=== PATIENT | female | born 1930 | race Caucasian/White ===

== ENCOUNTER 2016-11-02 12:54 | Emergency (ER) | payer MEDICARE, OTHER ==
[~2016-11-02] VITALS: Ht 162.6 cm; Wt 103.0 kg
[~2016-11-02 12:54] MED LIST: CLOT45CR43 VAG; DOCU-159 PO; LACT1CAP57 PO; LOSA25TA2 PO; MEMA10TA20 PO; OXYB10TA6 PO; RIVA1PAT TD; RIVA1PAT TRANSDERM; SUCR1TAB56 PO; TRAM50TA2 PO; ZOLP5TAB PO
[2016-11-02 13:02] VITALS: Ht 162.6 cm; Wt 103.0 kg
[2016-11-02] MEDS ORDERED: ACET500C5 PO (15:32)
--- NOTE | 2016-11-02 15:40 | ERD ---
ER Documentation Chief Complaint Date/Time DATE: 11/02/16 TIME: 15:38 Chief Complaint LT HAND PAIN S/P FALL LAST NIGHT , DENIES DIZZINESS HPI This 86-year-old female presents with left hand pain after falling last night. She tripped. She denies any head injury, neck pain, weakness, additional complaints. ROS All systems reviewed and are negative except as per history of present illness. Medications Home Meds Active Scripts Acetaminophen* (Tylophen*) 500 Mg Capsule, 1 CAP PO Q6H Y for PAIN AND OR ELEVATED TEMP, #20 CAP Prov:HUNTER DUNN MD 11/02/16 Zolpidem Tartrate (Ambien Landon) 5 Mg Tablet, 5 MG PO QHS Y for SLEEP for 30 Days , TAB Prov:DHRUV SALMERON 10/28/15 Lactobacillus Rhamnosus* (Culturelle*) 1 Each Cap.sprink, 1 CAP PO BID for 30 Days, CAP Prov:DHRUV SALMERON 10/28/15 Clotrimazole (Clotrim) 45 Gm Cr, 1 APPLIC VAG HS for 7 Days Prov:DHRUV SALMERON 10/28/15 Memantine HCl (Memantine HCl) 10 Mg Tablet, 10 MG PO BID for 30 Days, TAB Prov:DHRUV SALMERON 10/08/15 Rivastigmine* Patch (Exelon* Patch) 13.3 Mg/24 Hr Patch.td24, 1 PATCH TRANSDERM DAILY@20 for 30 Days Prov:DHRUV SALMERON 10/08/15 Oxybutynin Chloride* (Ditropan* XL) 10 Mg Tab.er.24, 10 MG PO DAILY for 30 Days , TAB.SA Prov:DHRUV SALMERON 10/08/15 Reported Medications Docusate Sodium* (Docusate Sodium*) 100 Mg Capsule, 100 MG PO BID, CAP 08/23/14 Rivastigmine* Patch (Exelon* Patch) 13.3 Mg/24 Hr Patch.td24, 1 PATCH TD DAILY, PATCH 08/23/14 Sucralfate* (Carafate*) 1 Gm Tab, 1 GM PO TID AC MEALS, TAB 08/23/14 Tramadol HCl (Tramadol HCl) 50 Mg Tab, 50-100 MG PO TID Y for PAIN, TAB 08/23/14 Losartan Potassium* (Cozaar*) 25 Mg Tablet, 25 MG PO BID 02/08/12 Allergies Allergies: Coded Allergies: No Known Allergy (Unverified , 10/17/15) PMhx/Soc History of Surgery: Yes (BILAT TKR, BACK SX, GALLBLADDER REMOVAL) Anesthesia Reaction: No Hx Neurological Disorder: No Hx Respiratory Disorders: No Hx Cardiac Disorders: No Hx Psychiatric Problems: No Hx Miscellaneous Medical Probl: Yes (obesity) Hx Alcohol Use: No Hx Substance Use: No Hx Tobacco Use: No Smoking Status: Never smoker Physical Exam Vitals Vital Signs Date Time Temp Pulse Resp B/P Pulse Ox O2 Delivery O2 Flow Rate FiO2 11/02/16 13:02 98.2 81 18 135/66 98 Physical Exam Const: []Alert, not ill-appearing. Head: Atraumatic Eyes: Normal Conjunctiva ENT: Normal External Ears, Nose and Mouth. Neck: Full range of motion..~ No meningismus. Resp: Clear to auscultation bilaterally Cardio: Regular rate and rhythm, no murmurs Abd: Soft, non tender, non distended. Normal bowel sounds Skin: No petechiae or rashes Back: No midline or flank tenderness Ext: No cyanosis, or edemaAlert, [id number]. There is some tenderness and bruising over the left second metacarpal phalangeal area. There is no erythema, bleeding, restricted range of motion weakness. Cap refill is less than seconds. Neur: Awake and alert Psych: Normal Mood and Affect Departure Diagnosis: Primary Impression: Hand fracture, left Encounter type: initial encounter Fracture type: closed Qualified Code: S62.92XA - Closed fracture of left hand, initial encounter Condition: Stable Additional Instructions: X-ray left hand 3V interpreted by me: Scaphoid: [Normal] Bones: [There is a minimally displaced fracture of the distal left second metacarpal shaft Joints: [No dislocation] Foreign body: [None]. Impression-minimally displaced left distal second metacarpal shaft fracture Patient was placed in a left hand splint and was neurovascular intact after splint Patient presents with a closed left metacarpal first shaft fracture. There is no evidence of ischemia, bacterial infection, deficits. She will discharged home in a splint with primary care and orthopedic follow-up. She should return sooner for redness, fevers, new symptoms. HUNTER DUNN MD Nov 02, 2016 15:40
--- NOTE | 2016-11-02 16:19 | RADRPT ---
PROCEDURE: Left hand series CLINICAL INDICATION: Pain status post trauma TECHNIQUE: AP oblique and lateral view COMPARISON: None available FINDINGS: Soft tissue swelling is noted along the dorsal surface of the second metacarpal. An acute, closed, o blique fracture of the distal portion of the second metacarpal is noted. No radiodense foreign ishmael s are present. No evidence for definite intra-articular extension or dislocation is noted . Mild joint space narrowing is noted of the trapezium and first metacarpal joint as well as the left second through fifth distal interphalangeal joints. IMPRESSION: 1. Acute, closed, oblique fracture of the left distal second metacarpal without definite evidence f or intra-articular extension and no dislocation. 2. Soft tissue swelling along the dorsum of the left second metacarpal. 3. Mild osteopenia and joint space narrowing is noted. RPTAT: HDC .Emerita Desir MD, Date Time Electronically viewed and signed by .Emerita Desir MD, MD on 11/02/2016 16:18 .C/
== END 2016-11-02 16:40 | disposition home or self-care (01) ==
LOC: FTE 12:54
DX: S62.301A Unspecified fracture of second metacarpal bone, left hand, initial encounter for closed fracture (principal); E66.9 Obesity, unspecified; W01.0XXA Fall on same level from slipping, tripping and stumbling without subsequent striking against object, initial encounter; Y92.9 Unspecified place or not applicable; Z68.39 Body mass index [BMI] 39.0-39.9, adult

== ENCOUNTER 2017-01-04 22:08 | Inpatient (IN) | payer MEDICARE, OTHER ==
[~2017-01-04] VITALS: Ht 167.6 cm; Wt 102.6 kg
[~2017-01-04 22:08] MED LIST changes: +ACET500C5 PO
--- NOTE | 2017-01-05 00:52 | RADRPT ---
PROCEDURE: Portable chest x-ray. CLINICAL INDICATION: Chest pain. TECHNIQUE: Portable AP view of the chest. COMPARISON: 10/27/2015. FINDINGS: No pulmonary edema or conolidation is identified. The cardiac silhouette is magnified. There are ao rtic calcifications. No pleural effusion is seen. There is no pneumothorax. IMPRESSION: 1. No evidence of acute cardiopulmonary disease. 2. Aortic atherosclerosis. RPTAT: HTAR .Damien Gracia MD, MD Date Time Electronically viewed and signed by .Damien Gracia MD, on 01/05/2017 00:52 .R/
--- NOTE | 2017-01-05 01:00 | ERD ---
ER Documentation Chief Complaint Chief Complaint pressure like chest pain since 1 hourago, dizziness HPI 86-year-old female here for pressure-like chest pain since 1 hour ago. Chest pain is sharp, substernal with no exacerbating relieving factors. Patient also felt dizzy and almost like she was in the past L. No palpitations. No other current issues ROS All systems reviewed and are negative except as per history of present illness. Medications Home Meds Active Scripts Acetaminophen* (Tylophen*) 500 Mg Capsule, 1 CAP PO Q6H Y for PAIN AND OR ELEVATED TEMP, #20 CAP Prov:HUNTER DUNN MD 11/02/16 Zolpidem Tartrate (Ambien Landon) 5 Mg Tablet, 5 MG PO QHS Y for SLEEP for 30 Days , TAB Prov:DHRUV SALMERON 10/28/15 Lactobacillus Rhamnosus* (Culturelle*) 1 Each Cap.sprink, 1 CAP PO BID for 30 Days, CAP Prov:DHRUV SALMERON 10/28/15 Clotrimazole (Clotrim) 45 Gm Cr, 1 APPLIC VAG HS for 7 Days Prov:DHRUV SALMERON 10/28/15 Memantine HCl (Memantine HCl) 10 Mg Tablet, 10 MG PO BID for 30 Days, TAB Prov:DHRUV SALMERON 10/08/15 Rivastigmine* Patch (Exelon* Patch) 13.3 Mg/24 Hr Patch.td24, 1 PATCH TRANSDERM DAILY@20 for 30 Days Prov:DHRUV SALMERON 10/08/15 Oxybutynin Chloride* (Ditropan* XL) 10 Mg Tab.er.24, 10 MG PO DAILY for 30 Days , TAB.SA Prov:DHRUV SALMERON 10/08/15 Reported Medications Docusate Sodium* (Docusate Sodium*) 100 Mg Capsule, 100 MG PO BID, CAP 08/23/14 Rivastigmine* Patch (Exelon* Patch) 13.3 Mg/24 Hr Patch.td24, 1 PATCH TD DAILY, PATCH 08/23/14 Sucralfate* (Carafate*) 1 Gm Tab, 1 GM PO TID AC MEALS, TAB 08/23/14 Tramadol HCl (Tramadol HCl) 50 Mg Tab, 50-100 MG PO TID Y for PAIN, TAB 08/23/14 Losartan Potassium* (Cozaar*) 25 Mg Tablet, 25 MG PO BID 02/08/12 Allergies Allergies: Coded Allergies: No Known Allergy (Unverified , 10/17/15) PMhx/Soc History of Surgery: Yes (BILAT TKR, BACK SX, GALLBLADDER REMOVAL) Anesthesia Reaction: No Hx Neurological Disorder: No Hx Respiratory Disorders: No Hx Cardiac Disorders: No Hx Psychiatric Problems: No Hx Miscellaneous Medical Probl: Yes (obesity) Hx Alcohol Use: No Hx Substance Use: No Hx Tobacco Use: No Smoking Status: Never smoker Physical Exam Vitals Vital Signs Date Time Temp Pulse Resp B/P Pulse Ox O2 Delivery O2 Flow Rate FiO2 01/04/17 22:11 97.8 76 20 136/82 98 Physical Exam Const: [] Head: Atraumatic Eyes: Normal Conjunctiva ENT: Normal External Ears, Nose and Mouth. Neck: Full range of motion..~ No meningismus. Resp: Clear to auscultation bilaterally Cardio: Regular rate and rhythm, no murmurs Abd: Soft, non tender, non distended. Normal bowel sounds Skin: No petechiae or rashes Back: No midline or flank tenderness Ext: No cyanosis, or edema Neur: Awake and alert Psych: Normal Mood and Affect Result Diagram: 01/04/17231601/04/172316 Results 24 hrs Laboratory Tests Test 01/04/17 23:17 White Blood Count 9.810^3/ul Red Blood Count 4.7610^6/ul Hemoglobin 14.5g/dl Hematocrit 43.3% Mean Corpuscular Volume 91.0fl Mean Corpuscular Hemoglobin 30.5pg Mean Corpuscular Hemoglobin Concent 33.5g/dl Red Cell Distribution Width 13.3% Platelet Count 99018^3/UL Mean Platelet Volume 10.1fl Neutrophils % 73.7% Lymphocytes % 19.2% Monocytes % 6.3% Eosinophils % 0.3% Basophils % 0.2% Nucleated Red Blood Cells % 0.0/100WBC Neutrophils # 7.210^3/ul Lymphocytes # 1.910^3/ul Monocytes # 0.610^3/ul Eosinophils # 0.010^3/ul Basophils # 0.010^3/ul Nucleated Red Blood Cells # 0.010^3/ul Sodium Level 141mmol/L Potassium Level 4.4mmol/L Chloride Level 104mmol/L Carbon Dioxide Level 27mmol/L Anion Gap 14 Blood Urea Nitrogen 21mg/dl Creatinine 1.35mg/dl Glucose Level 146mg/dl Calcium Level 10.2mg/dl Total Bilirubin 0.3mg/dl Direct Bilirubin 0.00mg/dl Indirect Bilirubin 0.3mg/dl Aspartate Amino Transf (AST/SGOT) 27IU/L Alanine Aminotransferase (ALT/SGPT) 29IU/L Alkaline Phosphatase 92IU/L Troponin I < 0.012ng/ml B-Type Natriuretic Peptide 184PG/ML Total Protein 8.3g/dl Albumin 4.2g/dl Globulin 4.10g/dl Albumin/Globulin Ratio 1.02 Procedures/MDM EKG: Rate/Rhythm: [Normal Sinus Rhythm] QRS, ST, T-waves: [No changes consistent w/ acute ischemia] Impression: [No evidence of ischemia or arrhythmia] Chest X-ray 1V Interpreted by me: Soft Tissue: No acute abnormalities Bones: No acute abnormalities Mediastinum/Cardiac Silhouette/Lungs: [No acute abnormalities] Patient's symptoms are concerning for cardiac cause will require inpatient workup and continuous monitoring. Further w/u for ischemia, arrhythmia, PE or dissection will be deferred to the inpatient team. Accepting Care Team: Current data and ongoing care discussed. Time: 1 AM Primary Provider: Dr. Lee Consulting: [[employer]] Outstanding Data: none Departure Diagnosis: Primary Impression: Chest pain Chest pain type: unspecified Qualified Code: R07.9 - Chest pain, unspecified type Condition: Serious EMMANUELNATALIE WallSanjeev Jan 05, 2017 01:00
[2017-01-05] MEDS ORDERED: SOLI10TA5 PO (02:19)
[2017-01-05] MEDS ORDERED: ALPR0.5T6 PO (02:19)
[2017-01-05] MEDS ORDERED: DEXL60CA2 PO (02:19)
[2017-01-05] MEDS ORDERED: FAMOTIDINE 20 MG TAB PO SCH (03:45)
[2017-01-05] MEDS ORDERED: ACETAMINOPHEN 325 MG TAB PO PRN (04:00)
[2017-01-05] MEDS ORDERED: NACL 0.9% 3 ML SYG IV SCH (04:00)
[2017-01-05] MEDS ORDERED: NITROGLYCERIN (SL) 0.4 MG TAB SL PRN (04:00)
[2017-01-05] MEDS ORDERED: ONDANSETRON 4 MG INJ IV PRN (04:00)
[2017-01-05 06:00] VITALS: TEMP 98.8
--- NOTE | 2017-01-05 06:31 | HP ---
Date/Time of Note Date/Time of Note DATE: 01/05/17 TIME: 06:13 Assessment/Plan VTE Prophylaxis VTE Prophylaxis Intervention: SCD's Lines/Catheters IV [facility] Saline Lock Assessment/Plan Chief Complaint/Hosp Course This is a 86-year-old female being admitted to the telemetry floor for: #1 chest pain: Rule out ACS versus musculoskeletal etiology: trend troponins 3 4 set negative. Will check a 2D echocardiogram in the a.m. Patient does have palpable chest pain of the right chest which could be secondary to cost chondritis. Nonetheless we will rule out cardiac causes. Consult cardiology if indicated #2 acute kidney injury: Likely acute in nature as her previous kidney function one year ago appears in normal values. Likely prerenal. Will encourage p.o. intake will monitor kidney function. #3 Dementia: continue home meds #4 hypertension: We will resume patient on medication #5 history of lumbar surgery: Continue patient home pain meds #6 Overactive bladder: Continue home Vesicare, Ditropan #7 anxiety: Continue patient's Ativan #8 acid reflux: Continue Carafate, PPI #8 DVT GI prophylaxis: SCDs, PPI Further treatment strategy will be implemented as per the clinical course Problems: HPI/ROS Admit Date/Time Admit Date/Time Hx of Present Illness Chief complaint: Chest pain This is a 86-year-old female here for pressure-like chest pain since 1 hour ago. She states that she was shopping with her son she started experiencing chest pressure and diaphoresis and she felt dizzy. Patient reports the pain is on the right and right side of her chest. Patient also felt dizzy. No palpitations. Denies any lower extremity edema. allergies: NKDA Medications: See ERIC ROS Const: As per HPI Eyes : No pain discharge or redness or change in visual acuity ENT: No pain, sore throat, congestion, congestion, dysphagia or discharge Respiratory: No shortness of breath, cough, sputum, wheezing, or pleuritic pain Cardiovascular: As per HPI GI : no change in appetite, abdominal pain, nausea, vomiting, diarrhea, constipation, or change in the color his stool Genitourinary: No dysuria, hematuria, flank pain , discharge or CVA tenderness Musculoskeletal: No joint pain, back pain, neck pain, restricted range of motion in neck or joints Skin: No rash, bruising or hives Neuro: No headache, dizziness, syncope, seizure, focal weakness Endocrine: No polyuria, polydipsia, temperature intolerance Psych: No hallucination, depression, anxiety or suicidal ideation PMH/Family/Social Past Medical History History of lumbar injury status post surgery, acid reflux, anxiety, hypertension , mild dementia Past Surgical History Lumbar surgery, bilateral knee replacement Family History Significant Family History: no pertinent family hx Social History Alcohol Use: none Smoking Status: Never smoker Drug Use: none Exam/Review of Systems Vital Signs Vitals Vital Signs Date Time Temp Pulse Resp B/P Pulse Ox O2 Delivery O2 Flow Rate FiO2 01/05/17 06:00 98.8 62 115/82 100 2.0 01/05/17 02:21 18 Nasal Cannula Exam Exam General: Patient is an obese female lying in bed in no acute distress HEENT: Atraumatic, normocephalic. The pupils are equal, round and reactive. Extraocular motor are intact Neck: Supple with full range of motion. No rigidity or meningismus Chest: Tender to palpation over the right chest Lungs: Clear to auscultation bilaterally no crackles rales or wheezing Heart: Normal S1-S2, Regular rhythm and rate. No overt murmurs appreciated Abdomen: Soft , nontender, nondistended , bowel sounds are present. No guarding no rebound tenderness , No masses or organomegaly. No costovertebral temporal angle mass Extremities: Normal to inspection, no edema no cyanosis Neurologic: Normal mental status, speech normal, cranial nerves II through XII are intact, motor and sensory are intact, no focal weakness Additional Comments EKG: Rate/Rhythm: [Normal Sinus Rhythm] QRS, ST, T-waves: [No changes consistent w/ acute ischemia] Impression: [No evidence of ischemia or arrhythmia] As per ED physician documentation PROCEDURE: Portable chest x-ray. CLINICAL INDICATION: Chest pain. TECHNIQUE: Portable AP view of the chest. COMPARISON: 10/27/2015. FINDINGS: No pulmonary edema or conolidation is identified. The cardiac silhouette is magnified. There are aortic calcifications. No pleural effusion is seen. There is no pneumothorax. IMPRESSION: 1. No evidence of acute cardiopulmonary disease. 2. Aortic atherosclerosis. RPTAT: HTAR .Damien Gracia MD, Date Time Electronically viewed and signed by .Damien Gracia MD, on 01/05/2017 00:52 .R/ CC: NATALIE BENITEZ Labs Result Diagram: 01/05/17 0530 01/04/17 3097 Medications Medications Current Medications Ondansetron HCl (Zofran Inj) 4 mg Q6H PRN IV NAUSEA AND/OR VOMITING; Start 01/05/17 at 04:00 Nitroglycerin (Nitroglycerin (Sl Tab) 0.4 Mg) 1 tab Q5M PRN SL CHEST PAIN; Start 01/05/17 at 04:00 Acetaminophen (Tylenol Tab) 650 mg Q6H PRN PO PAIN LEVEL 1-3 OR FEVER; Start 01/05/17 at 04:00 Famotidine (Pepcid) 20 mg DAILY PO Last administered on 01/05/17t 04:21; Admin Dose 20 MG; Start 01/05/17 at 03:45 JENNIFER BENOIT Jan 05, 2017 06:24
[2017-01-05 08:40] VITALS: BP 138/68; PULSE 60; RESP 21
[2017-01-05] MEDS ORDERED: SUCRALFATE 1 GM TAB PO SCH (09:00)
[2017-01-05] MEDS ORDERED: SOLIFENACIN 5 MG TAB PO SCH (09:00)
[2017-01-05] MEDS ORDERED: LOSARTAN 25 MG TAB PO SCH (09:00)
[2017-01-05] MEDS ORDERED: RIVASTIGMINE 13.3MG/24HR PATCH TD SCH (09:00)
[2017-01-05] MEDS ORDERED: OXYBUTYNIN (XL) 5 MG TAB PO SCH (09:00)
[2017-01-05] MEDS ORDERED: ALPRAZOLAM 0.25 MG TAB PO SCH (09:00)
[2017-01-05 09:34] VITALS: PULSE 66
[2017-01-05 10:45] VITALS: Ht 167.6 cm; Wt 102.6 kg
[2017-01-05 12:17] VITALS: PULSE 75
[2017-01-05] MEDS ORDERED: SULF1TAB31 PO (15:11)
--- NOTE | 2017-01-05 15:12 | PDOCDIS ---
Discharge Instructions DIAGNOSIS Discharge Diagnosis Syncope CONDITION Patient Condition: Fair HOME CARE INSTRUCTIONS: Diet Instructions: Regular FOLLOW UP/APPOINTMENTS Follow-up Plan Talk to your doctor about yoru medical concerns and whether it is ok to stop some of your medications Return to the hosptial if you have any concerning symptoms MATT RIVREA MD Jan 05, 2017 15:12
--- NOTE | 2017-01-05 15:12 | PDOCDIS ---
Discharge Instructions DIAGNOSIS Discharge Diagnosis Syncope CONDITION Patient Condition: Fair HOME CARE INSTRUCTIONS: Diet Instructions: Regular FOLLOW UP/APPOINTMENTS Follow-up Plan Talk to your doctor about yoru medical concerns and whether it is ok to stop some of your medications Return to the hosptial if you have any concerning symptoms MATT RIVERA MD Jan 05, 2017 15:12
--- NOTE | 2017-01-05 15:13 | DS ---
Date/Time of Note Date/Time of Note DATE: 01/05/17 TIME: 15:12 Discharge Summary Admission/Discharge Info Admit Date/Time Jan 05, 2017 at 00:40 Discharge Date/Time Discharge Diagnosis Syncope Patient Condition: Good Hx of Present Illness Chief complaint: Chest pain This is a 86-year-old female here for pressure-like chest pain since 1 hour ago. She states that she was shopping with her son she started experiencing chest pressure and diaphoresis and she felt dizzy. Patient reports the pain is on the right and right side of her chest. Patient also felt dizzy. No palpitations. Denies any lower extremity edema. allergies: NKDA Medications: See MAY Hospital Course This is a 86-year-old female being admitted to the telemetry floor for: #1 chest pain: Rule out ACS versus musculoskeletal etiology: trend troponins 3 4 set negative. Will check a 2D echocardiogram in the a.m. Patient does have palpable chest pain of the right chest which could be secondary to cost chondritis. Nonetheless we will rule out cardiac causes. Consult cardiology if indicated #2 acute kidney injury: Likely acute in nature as her previous kidney function one year ago appears in normal values. Likely prerenal. Will encourage p.o. intake will monitor kidney function. #3 Dementia: continue home meds #4 hypertension: We will resume patient on medication #5 history of lumbar surgery: Continue patient home pain meds #6 Overactive bladder: Continue home Vesicare, Ditropan #7 anxiety: Continue patient's Ativan #8 acid reflux: Continue Carafate, PPI #8 DVT GI prophylaxis: SCDs, PPI Further treatment strategy will be implemented as per the clinical course Patient was ruled out for acute NE with EKGs and serial biomarkers which were normal. LANCE resolved with holdign her home meds and fluids. Her syncope and chest symptoms were likley related to orthostatis in setting of antihyperensive use and dehydration. She felt better at tiem of discharge and was encouraged to follow up with her primary care provider Home Meds Active Scripts Acetaminophen* (Tylophen*) 500 Mg Capsule, 1 CAP PO Q6H Y for PAIN AND OR ELEVATED TEMP, #20 CAP Prov:HUNTER DUNN MD 11/02/16 Zolpidem Tartrate (Ambien Landon) 5 Mg Tablet, 5 MG PO QHS Y for SLEEP for 30 Days , TAB Prov:DHRUV SALMERON 10/28/15 Rivastigmine* Patch (Exelon* Patch) 13.3 Mg/24 Hr Patch.td24, 1 PATCH TRANSDERM DAILY@20 for 30 Days Prov:DHRUV SALMERON 10/08/15 Oxybutynin Chloride* (Ditropan* XL) 10 Mg Tab.er.24, 10 MG PO DAILY for 30 Days , TAB.SA Prov:DHRUV SALMERON 10/08/15 Reported Medications Alprazolam* (Alprazolam*) 0.5 Mg Tablet, 0.5 MG PO TID, TAB 01/05/17 Dexlansoprazole (Dexilant) 60 Mg Cap., 60 MG PO DAILY, #30 CAP 01/05/17 Solifenacin* (Vesicare*) 10 Mg Tablet, 10 MG PO DAILY, TAB 01/05/17 Docusate Sodium* (Docusate Sodium*) 100 Mg Capsule, 100 MG PO BID, CAP 08/23/14 Rivastigmine* Patch (Exelon* Patch) 13.3 Mg/24 Hr Patch.td24, 1 PATCH TD DAILY, PATCH 08/23/14 Sucralfate* (Carafate*) 1 Gm Tab, 1 GM PO TID AC MEALS, TAB 08/23/14 Tramadol HCl (Tramadol HCl) 50 Mg Tab, 50-100 MG PO TID Y for PAIN, TAB 08/23/14 Losartan Potassium* (Cozaar*) 25 Mg Tablet, 25 MG PO BID 02/08/12 Discontinued Scripts Lactobacillus Rhamnosus* (Culturelle*) 1 Each Cap.sprink, 1 CAP PO BID for 30 Days, CAP Prov:DHRUV SALMERON 10/28/15 Clotrimazole (Clotrim) 45 Gm Cr, 1 APPLIC VAG HS for 7 Days Prov:DHRUV SALMERON 10/28/15 Memantine HCl (Memantine HCl) 10 Mg Tablet, 10 MG PO BID for 30 Days, TAB Prov:DHRUV SALMERON 10/08/15 Follow-up Plan Talk to your doctor about yoru medical concerns and whether it is ok to stop some of your medications Return to the hosptial if you have any concerning symptoms Primary Care Provider Berhane Espinoza MD Pending Labs Laboratory Tests Test 01/04/17 23:17 01/05/17 05:30 01/05/17 11:53 White Blood Count 9.810^3/ul (4.8-10.8) 7.010^3/ul (4.8-10.8) Red Blood Count 4.7610^6/ul (4.20-5.40) 4.2310^6/ul (4.20-5.40) Hemoglobin 14.5g/dl (12.0-16.0) 12.8g/dl (12.0-16.0) Hematocrit 43.3% (37.0-47.0) 38.3% (37.0-47.0) Mean Corpuscular Volume 91.0fl (82.0-101.0) 90.5fl (82.0-101.0) Mean Corpuscular Hemoglobin 30.5pg (29.0-33.0) 30.3pg (29.0-33.0) Mean Corpuscular Hemoglobin Concent 33.5g/dl (32.0-37.0) 33.4g/dl (32.0-37.0) Red Cell Distribution Width 13.3% (11.5-14.5) 13.4% (11.5-14.5) Platelet Count 09449^3/UL (140-415) 79507^3/UL (140-415) Mean Platelet Volume 10.1fl (7.4-10.4) 10.2fl (7.4-10.4) Neutrophils % 73.7% (39.0-77.0) 55.9% (39.0-77.0) Lymphocytes % 19.2% (15.0-51.0) 32.5% (15.0-51.0) Monocytes % 6.3% (0.0-11.0) 9.2% (0.0-11.0) Eosinophils % 0.3% (0.0-7.0) 1.7% (0.0-7.0) Basophils % 0.2% (0.0-2.0) 0.6% (0.0-2.0) Nucleated Red Blood Cells % 0.0/100WBC (0.0-0.0) 0.0/100WBC (0.0-0.0) Neutrophils # 7.210^3/ul (1.6-7.5) 3.910^3/ul (1.6-7.5) Lymphocytes # 1.910^3/ul (0.8-2.9) 2.310^3/ul (0.8-2.9) Monocytes # 0.610^3/ul (0.3-0.9) 0.710^3/ul (0.3-0.9) Eosinophils # 0.010^3/ul (0.0-0.5) 0.110^3/ul (0.0-0.5) Basophils # 0.010^3/ul (0.0-0.1) 0.010^3/ul (0.0-0.1) Nucleated Red Blood Cells # 0.010^3/ul (0.0-0.0) 0.010^3/ul (0.0-0.0) Sodium Level 141mmol/L (135-144) 139mmol/L (135-144) Potassium Level 4.4mmol/L (3.5-5.1) 4.4mmol/L (3.5-5.1) Chloride Level 104mmol/L (97-110) 103mmol/L (97-110) Carbon Dioxide Level 27mmol/L (21-31) 29mmol/L (21-31) Anion Gap 14 (8-16) 11 (8-16) Blood Urea Nitrogen 21mg/dl (7-20) 23mg/dl (7-20) Creatinine 1.35mg/dl (0.44-1.00) 0.99mg/dl (0.44-1.00) Glucose Level 146mg/dl (70-220) 100mg/dl (70-220) Calcium Level 10.2mg/dl (8.4-10.2) 9.3mg/dl (8.4-10.2) Total Bilirubin 0.3mg/dl (0.2-1.3) 0.3mg/dl (0.2-1.3) Direct Bilirubin 0.00mg/dl (0.00-0.20) 0.00mg/dl (0.00-0.20) Indirect Bilirubin 0.3mg/dl (0-1.1) 0.3mg/dl (0-1.1) Aspartate Amino Transf (AST/SGOT) 27IU/L (15-46) 25IU/L (15-46) Alanine Aminotransferase (ALT/SGPT) 29IU/L (13-69) 25IU/L (13-69) Alkaline Phosphatase 92IU/L (42-121) 80IU/L (42-121) Troponin I < 0.012ng/ml (0.00-0.12) < 0.012ng/ml (0.00-0.12) < 0.012ng/ml (0.00-0.12) B-Type Natriuretic Peptide 184PG/ML (0-450) Total Protein 8.3g/dl (6.1-8.1) 6.8g/dl (6.1-8.1) Albumin 4.2g/dl (3.3-4.9) 3.4g/dl (3.3-4.9) Globulin 4.10g/dl (1.3-3.2) 3.40g/dl (1.3-3.2) Albumin/Globulin Ratio 1.02 1.00 Hemoglobin A1c 5.2% (0-5.9) Magnesium Level 2.0mg/dl (1.7-2.5) Creatine Kinase 106IU/L (23-200) 131IU/L (23-200) Creatine Kinase Index 1.3 1.1 Creatinine Kinase MB (Mass) 1.40ng/ml (0.0-2.4) 1.49ng/ml (0.0-2.4) Triglycerides Level 119mg/dl (0-149) Cholesterol Level 141mg/dl (100-200) LDL Cholesterol, Calculated 79mg/dl HDL Cholesterol 38mg/dl (33-92) Cholesterol/HDL Ratio 3.7RATIO Thyroid Stimulating Hormone (TSH) 2.010MIU/L (0.465-4.680) MATT RIVERA MD Jan 05, 2017 15:13
[2017-01-05 16:03] VITALS: PULSE 71
[2017-01-05 17:06] VITALS: BP 131/60; PULSE 79; RESP 20
--- NOTE | 2017-01-05 20:43 | RADRPT ---
Echocardiogram Report Patient Name: KEVIN SHAW Gender: Female Date: 1930 Study Date: 05-Jan-2017 Environment Coordinator: Masoud Min [facility] Location: [facility] Ref. Physician: JENNIFER BENOIT Quality: Good Procedures: Transthoracic echocardiogram with complete 2D, M-Mode, and doppler examination. Indications: Chest Pain. 2D/M Mode Doppler Measurement Value Normal Ranges Measurement Value Normal Ranges LVIDd 2D 4.2 3.5 - 5.6 cm AV Peak Andrade 1.2 m/sec LVIDs 2D 2.8 2.1 - 4.1 cm AV Peak PG 6.0 mmHg LVPWd 2D 1.0 0.6 - 1.1 cm AI Peak PG 33.1 mmHg IVSd 2D 1.0 0.6 - 1.1 cm AI Peak Andrade 2.9 m/sec AoR Diam 2D 3.1 2.0 - 3.7 cm AI PHT 598.6 msec EDV 2D 77.0 cm3 LVOT Peak Andrade 0.9 m/sec ESV 2D 22.3 cm3 LVOT Peak PG 3.3 mmHg LA Dimen 2D 3.2 2.3 - 4.0 cm MV E Peak Andrade 0.8 m/sec MV A Peak Andrade 0.9 m/sec MV E/A 0.9 MV Decel Time 246 msec MV Decel [place] 3 MV E/A 0.9 TR Peak Andrade 2.6 m/sec TR Peak PG 27.0 mmHg RVSP 35.0 mmHg Findings Left Ventricle: Normal left ventricular systolic function. Normal left ventricular cavity size. Normal left ventricular wall thickness. Ejection fraction is visually estimated at 55 %. Tissue Doppler/Mitral Doppler indices are consistent with impaired relaxation (Stage I diastolic dysfunction). Right Ventricle: Normal right ventricular size. Normal right ventricular systolic function. Left Atrium: The left atrium is normal in size. Right Atrium: The right atrium is normal in size. Mitral Valve: Mitral valve leaflets appear mildly thickened. Mild mitral annular calcification. Trace mitral regurgitation. Aortic Valve: No hemodynamically significant aortic stenosis by doppler. Aortic cusps appear mildly calcified. Mild aortic valve regurgitation. Tricuspid Valve: Normal appearance of the tricuspid valve. Estimated peak PA systolic pressure 35 mmHg. There is mild tricuspid regurgitation. Pulmonic Valve: Normal pulmonic valve appearance. Pericardium: Normal pericardium with no significant pericardial effusion. Aorta: Normal aortic root. IVC: Normal size and normal respiratory collapse consistent with normal right atrial pressure. Conclusions 1.Normal left ventricular systolic function. Normal left ventricular cavity size. Normal left ventricular wall thickness. Ejection fraction is visually estimated at 55 %. Tissue Doppler/Mitral Doppler indices are consistent with impaired relaxation (Stage I diastolic dysfunction). 2.Mitral valve leaflets appear mildly thickened. Mild mitral annular calcification. Trace mitral regurgitation. 3.No hemodynamically significant aortic stenosis by doppler. Aortic cusps appear mildly calcified. Mild aortic valve regurgitation. 4.Normal appearance of the tricuspid valve. Estimated peak PA systolic pressure 35 mmHg. There is mild tricuspid regurgitation. Electronically Signed By: Rj King 05-Jan-2017 20:42:42 -0700 Patient Name: KEVIN SHAW Study Date: 05-Jan-2017 [id number]
--- NOTE | 2017-01-05 20:43 | RADRPT ---
Echocardiogram Report Patient Name: KEVIN SHAW Gender: Female Date: 1930 Study Date: 05-Jan-2017 Spring Fitter: Masoud Min [facility] Location: [facility] Ref. Physician: JENNIFER BENOIT Quality: Good Procedures: Transthoracic echocardiogram with complete 2D, M-Mode, and doppler examination. Indications: Chest Pain. 2D/M Mode Doppler Measurement Value Normal Ranges Measurement Value Normal Ranges LVIDd 2D 4.2 3.5 - 5.6 cm AV Peak Andrade 1.2 m/sec LVIDs 2D 2.8 2.1 - 4.1 cm AV Peak PG 6.0 mmHg LVPWd 2D 1.0 0.6 - 1.1 cm AI Peak PG 33.1 mmHg IVSd 2D 1.0 0.6 - 1.1 cm AI Peak Andrade 2.9 m/sec AoR Diam 2D 3.1 2.0 - 3.7 cm AI PHT 598.6 msec EDV 2D 77.0 cm3 LVOT Peak Andrade 0.9 m/sec ESV 2D 22.3 cm3 LVOT Peak PG 3.3 mmHg LA Dimen 2D 3.2 2.3 - 4.0 cm MV E Peak Andrade 0.8 m/sec MV A Peak Andrade 0.9 m/sec MV E/A 0.9 MV Decel Time 246 msec MV Decel [place] 3 MV E/A 0.9 TR Peak Andrade 2.6 m/sec TR Peak PG 27.0 mmHg RVSP 35.0 mmHg Findings Left Ventricle: Normal left ventricular systolic function. Normal left ventricular cavity size. Normal left ventricular wall thickness. Ejection fraction is visually estimated at 55 %. Tissue Doppler/Mitral Doppler indices are consistent with impaired relaxation (Stage I diastolic dysfunction). Right Ventricle: Normal right ventricular size. Normal right ventricular systolic function. Left Atrium: The left atrium is normal in size. Right Atrium: The right atrium is normal in size. Mitral Valve: Mitral valve leaflets appear mildly thickened. Mild mitral annular calcification. Trace mitral regurgitation. Aortic Valve: No hemodynamically significant aortic stenosis by doppler. Aortic cusps appear mildly calcified. Mild aortic valve regurgitation. Tricuspid Valve: Normal appearance of the tricuspid valve. Estimated peak PA systolic pressure 35 mmHg. There is mild tricuspid regurgitation. Pulmonic Valve: Normal pulmonic valve appearance. Pericardium: Normal pericardium with no significant pericardial effusion. Aorta: Normal aortic root. IVC: Normal size and normal respiratory collapse consistent with normal right atrial pressure. Conclusions 1.Normal left ventricular systolic function. Normal left ventricular cavity size. Normal left ventricular wall thickness. Ejection fraction is visually estimated at 55 %. Tissue Doppler/Mitral Doppler indices are consistent with impaired relaxation (Stage I diastolic dysfunction). 2.Mitral valve leaflets appear mildly thickened. Mild mitral annular calcification. Trace mitral regurgitation. 3.No hemodynamically significant aortic stenosis by doppler. Aortic cusps appear mildly calcified. Mild aortic valve regurgitation. 4.Normal appearance of the tricuspid valve. Estimated peak PA systolic pressure 35 mmHg. There is mild tricuspid regurgitation. Electronically Signed By: Rj King 05-Jan-2017 20:42:42 -0700 Patient Name: KEVIN SHAW Study Date: 05-Jan-2017 [id number]
--- NOTE | 2017-01-05 20:43 | RADRPT ---
Echocardiogram Report Patient Name: KEVIN SHAW Gender: Female Date: 1930 Study Date: 05-Jan-2017 Jet Dyeing Machine Operator: Masoud Min [facility] Location: [facility] Ref. Physician: JENNIFER BENOIT Quality: Good Procedures: Transthoracic echocardiogram with complete 2D, M-Mode, and doppler examination. Indications: Chest Pain. 2D/M Mode Doppler Measurement Value Normal Ranges Measurement Value Normal Ranges LVIDd 2D 4.2 3.5 - 5.6 cm AV Peak Andrade 1.2 m/sec LVIDs 2D 2.8 2.1 - 4.1 cm AV Peak PG 6.0 mmHg LVPWd 2D 1.0 0.6 - 1.1 cm AI Peak PG 33.1 mmHg IVSd 2D 1.0 0.6 - 1.1 cm AI Peak Andrade 2.9 m/sec AoR Diam 2D 3.1 2.0 - 3.7 cm AI PHT 598.6 msec EDV 2D 77.0 cm3 LVOT Peak Andrade 0.9 m/sec ESV 2D 22.3 cm3 LVOT Peak PG 3.3 mmHg LA Dimen 2D 3.2 2.3 - 4.0 cm MV E Peak Andrade 0.8 m/sec MV A Peak Andrade 0.9 m/sec MV E/A 0.9 MV Decel Time 246 msec MV Decel [place] 3 MV E/A 0.9 TR Peak Andrade 2.6 m/sec TR Peak PG 27.0 mmHg RVSP 35.0 mmHg Findings Left Ventricle: Normal left ventricular systolic function. Normal left ventricular cavity size. Normal left ventricular wall thickness. Ejection fraction is visually estimated at 55 %. Tissue Doppler/Mitral Doppler indices are consistent with impaired relaxation (Stage I diastolic dysfunction). Right Ventricle: Normal right ventricular size. Normal right ventricular systolic function. Left Atrium: The left atrium is normal in size. Right Atrium: The right atrium is normal in size. Mitral Valve: Mitral valve leaflets appear mildly thickened. Mild mitral annular calcification. Trace mitral regurgitation. Aortic Valve: No hemodynamically significant aortic stenosis by doppler. Aortic cusps appear mildly calcified. Mild aortic valve regurgitation. Tricuspid Valve: Normal appearance of the tricuspid valve. Estimated peak PA systolic pressure 35 mmHg. There is mild tricuspid regurgitation. Pulmonic Valve: Normal pulmonic valve appearance. Pericardium: Normal pericardium with no significant pericardial effusion. Aorta: Normal aortic root. IVC: Normal size and normal respiratory collapse consistent with normal right atrial pressure. Conclusions 1.Normal left ventricular systolic function. Normal left ventricular cavity size. Normal left ventricular wall thickness. Ejection fraction is visually estimated at 55 %. Tissue Doppler/Mitral Doppler indices are consistent with impaired relaxation (Stage I diastolic dysfunction). 2.Mitral valve leaflets appear mildly thickened. Mild mitral annular calcification. Trace mitral regurgitation. 3.No hemodynamically significant aortic stenosis by doppler. Aortic cusps appear mildly calcified. Mild aortic valve regurgitation. 4.Normal appearance of the tricuspid valve. Estimated peak PA systolic pressure 35 mmHg. There is mild tricuspid regurgitation. Electronically Signed By: Rj King 05-Jan-2017 20:42:42 -0700 Patient Name: KEVIN SHAW Study Date: 05-Jan-2017 [id number]
[2017-01-06] MEDS ORDERED: PANTOPRAZOLE (EC) 40 MG TAB PO SCH (06:00)
== END 2017-01-05 16:55 | disposition home or self-care (01) | DRG 312 ==
LOC: E/R 22:08 → MS3 01-05 00:40 → UNDODISIN 01-05 16:55 → MS3 01-05 17:10
PROVIDERS: ADMIT Family Medicine; ATTEND Family Medicine
DX: R55 Syncope and collapse (principal); N17.9 Acute kidney failure, unspecified; R07.9 Chest pain, unspecified; F03.90 Unspecified dementia, unspecified severity, without behavioral disturbance, psychotic disturbance, mood disturbance, and anxiety; I10 Essential (primary) hypertension; N32.81 Overactive bladder; F41.9 Anxiety disorder, unspecified; K21.9 Gastro-esophageal reflux disease without esophagitis
CPT/HCPCS: 36415; 71010; 80053; 80061; 82550; 82553; 83036; 83735; 83880; 84443; 84484; 85025; 93005; 93306

== ENCOUNTER 2017-12-29 11:20 | Day surgery (SDC) | END 2017-12-29 14:51 | disposition home or self-care (01) ==